=== PATIENT | male | born 1945 | race African-American/Black ===

== ENCOUNTER → 2019-12-24 | Outpatient (CLI) | payer MEDICARE ==
[~2019-12-24] VITALS: Ht 177.8 cm; Wt 68.0 kg
[~2019-12-24] MED LIST: AMLODIPINE BESY10 MG PO; ASPIR 8181 MG PO; ATENOLOL50 MG PO; ATORVASTATIN CA20 MG PO; CLONIDINE HCL0.1 MG PO; CLOPIDOGREL75 MG PO; HYDRALAZINE HCL25 MG PO; LOSARTAN POTAS100 MG PO
--- NOTE | 2019-12-24 09:40 | NUR ---
Checked patient's temperature via skin probe 98.1F. Patient denies being out of the country or out of the state in the last 14 days. Patient denies being around anyone who has been out of the country or out of the state in the last 14 days. Patient denies being around anyone who has been exposed or diagnosed with COVID-19 in the last 14 days. Patient denies fever, cough, or shortness of breath in the last 14 days. Patient reports he was tested for COVID-19 on 12/16/2019 and result was negative.
[2019-12-24 10:29] LABS: BASOPHILS % 0.5 % (0.0-1.0); EOSINOPHILS # (AUTO) 0.3 (0.0-0.4); EOSINOPHILS % 7.5 % (0.0-6.0); HEMATOCRIT 35.4 % (38.2-49.6); HEMOGLOBIN 11.8 g/dL (14.0-18.0); LYMPHOCYTES # (AUTO) 1.7 (1.0-3.2); LYMPHOCYTES % 38.4 % (18.0-39.1); MEAN CORPUSCULAR HEMOGLOBIN 30.9 pg (28-32); MEAN CORPUSCULAR HGB CONC 33.3 g/dL (31-35); MEAN CORPUSCULAR VOLUME 92.7 fL (81-99); MONOCYTES # (AUTO) 0.6 (0.2-0.8); MONOCYTES % 13.7 % (4.4-11.3); NEUTROPHILS # (AUTO) 1.7 (2.1-6.9); NEUTROPHILS % 39.7 % (38.7-80.0); PLATELET COUNT 264 x10e3/uL (140-360); RED BLOOD COUNT 3.82 x10e6/uL (4.3-5.7); RED CELL DISTRIBUTION WIDTH 13.6 % (11.7-14.4)
[2019-12-24 10:51] LABS: ALANINE AMINOTRANSFERASE 35 IU/L (0-55); ALBUMIN 3.9 g/dL (3.5-5.0); ALKALINE PHOSPHATASE 66 IU/L (40-150); CALCIUM 9.3 mg/dL (8.4-10.2); CARBON DIOXIDE 25 mmol/L (22-29); CHLORIDE 107 mmol/L (98-107); EST GLOMERULAR FILTRATION RATE > 60 ML/MIN (60-); GLUCOSE 105 mg/dL (74-118); SODIUM 139 mmol/L (136-145)
[2019-12-24 11:12] LABS: BLOOD UREA NITROGEN 25 mg/dL (7-26); BUN/CREATININE RATIO 23 (6-25)
== END ==
LOC: DX 12:31 → EDSTATUS 12-31 13:00
PROVIDERS: ATTEND Internal Medicine Interventional Cardiology
DX: Z01.818 Encounter for other preprocedural examination (principal); I73.9 Peripheral vascular disease, unspecified
CPT/HCPCS: 36415; 80053; 85025